=== PATIENT | female | born 1955 | race African-American/Black ===

== ENCOUNTER → 2017-05-11 | Outpatient (CLI) | payer OTHER | LOC: RAD 01:22 | DX: Z12.31 Encounter for screening mammogram for malignant neoplasm of breast (principal) ==

== ENCOUNTER → 2019-08-01 | Outpatient (CLI) | payer OTHER | LOC: CAT 14:38 | DX: Z13.6 Encounter for screening for cardiovascular disorders (principal); E78.00 Pure hypercholesterolemia, unspecified; Z82.49 Family history of ischemic heart disease and other diseases of the circulatory system ==

== ENCOUNTER → 2019-08-01 | Outpatient (CLI) | payer OTHER | LOC: RAD 14:12 | DX: Z12.31 Encounter for screening mammogram for malignant neoplasm of breast (principal) ==